=== PATIENT | male | born 2000 | race Caucasian/White ===

== ENCOUNTER 2023-09-06 14:14 | Outpatient (CLI) | payer OTHER, SELFPAY ==
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
== END 2023-09-06 14:15 | disposition home or self-care (01) ==
LOC: RAD 14:17
PROVIDERS: PCP Nurse Practitioner Family; Visit Provider Nurse Practitioner Family
DX: M25.511 Pain in right shoulder (principal); S49.81XS Other specified injuries of right shoulder and upper arm, sequela; X58.XXXS Exposure to other specified factors, sequela
CPT/HCPCS: 73030